=== PATIENT | female | born 1935 | race Caucasian/White ===

== ENCOUNTER 2022-03-16 12:59 | Emergency (ER) | payer MEDICARE, SELFPAY ==
--- NOTE | ~2022-03-16 | XR_ITS ---
XR forearm RT 2V DATE: 03/16/2022 13:32 INDICATION: Fall. Pain and bruising of entire right forearm, posterior hematoma. TECHNIQUE: 3 views COMPARISON: None FINDINGS: Prominent posterolateral soft tissue swelling/hematoma of the mid forearm. Slight dorsal olecranon process spurring. Normal alignment at the elbow and wrist joints. No fracture or dislocation of the radius or ulna is noted. No elbow joint effusion. 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 IMPRESSION: Prominent soft tissue hematoma along the posterolateral aspect of the forearm; no fractur e or dislocation is detected Reviewed, dictated and finalized at location B. IMPRESSION: Prominent soft tissue hematoma along the posterolateral aspect of t he forearm; no fracture or dislocation is detected
[2022-03-16 13:12] VITALS: BP 122/60; PULSE 64; RESP 16; TEMP 36.6; O2SAT 96
[2022-03-16 13:23] VITALS: BP 122/60
--- NOTE | 2022-03-16 14:13 | ED.UPPEXIN ---
HPI - Extremity Injury (Upper) General Chief Complaint: Extremity Injury, Upper Stated Complaint: Skin Sore Source: patient, family, RN notes reviewed and old records reviewed Mode of arrival: ambulatory Limitations: no limitations History of Present Illness HPI narrative: 86-year-old female who presents to [facility] with injury to her right forearm after falling on rocks at her home on Sunday and striking her right forearm. Patient has large hematoma to her mid anterior right forearm with bruising noted and small abrasion on top of hematoma with no drainage noted. Patient denies acute pain to her arm has full mobility. Patient denies any other injury, states did not hit her head and did not experience syncope or dizziness prior to fall. Patient takes daily 81 mg aspirin no other blood thinner. Patient has strong pulses to right arm and wrist. MD complaint: injury to: right and forearm Onset (ago): day(s) (4) Treatments prior to arrival: cold therapy Related Data Home Medications Medication Instructions Recorded Confirmed alprazolam 0.25 mg tablet mg 03/16/22 amlodipine 10 mg tablet mg 03/16/22 atorvastatin 40 mg tablet mg 03/16/22 bupropion HCl 150 mg 24 hr tablet, mg PO 03/16/22 extended release duloxetine 30 mg capsule,delayed mg PO 03/16/22 release levothyroxine 50 mcg tablet mcg 03/16/22 metoprolol succinate 25 mg mg PO 03/16/22 tablet,extended release 24 hr Allergies Allergy/AdvReac Type Severity Reaction Status Date / Time No Known Allergies Allergy Verified 03/16/22 13:22 Review of Systems Review of Systems: CONSTITUTIONAL: Denies fever, chills, or sweats. EYES: Denies visual changes, redness, or discharge. ENT: Denies rhinorrhea, congestion, sore throat, or otalgia. CARDIOVASCULAR: Denies chest pain, palpitations, or edema. RESPIRATORY: Denies cough or dyspnea. GASTROINTESTINAL: Denies abdominal pain, nausea, vomiting, or diarrhea. GENITOURINARY: Denies dysuria or hematuria. SKIN: Denies rash or itching. MUSCULOSKELETAL: Denies back pain,discomfort with bruising and hematoma to anterior right mid forearm from fall, or myalgia. NEUROLOGIC: Denies headache, numbness, or weakness. PSYCHIATRIC: Positive for anxiety or depression. All systems reviewed & are unremarkable except as noted in HPI and below PMFSH Past Medical History Medical History (Updated 03/17/22 @ 15:29 by Katharine Killian NP) Elevated cholesterol Hypertension Hypothyroid Post-menopausal Surgical History Surgical History (Updated 03/17/22 @ 15:31 by Katharine Killian NP) History of hand surgery surgical repair to fractures of left 3rd and 4th fingers Family History Family History (Updated 04/09/14 @ 07:13 by DOCTOR UNKNOWN) Mother Cerebrovascular accident Social History Social History (Updated 03/17/22 @ 15:32 by Katharine Killian NP) Smoking status: Never smoker Alcohol intake: never Substance use type: does not use Living arrangements: with family Gender identity (if verbalized by the patient): Female Comments At time of signature, agree with nursing past medical, surgical, social and family history. There is no relevant family history pertinent to the presenting complaint Exam Narrative: ctive GENERAL: Well-appearing, well-nourished, and in no acute distress. HEAD: Normocephalic, atraumatic. EYES: PERRLA and EOMI. ENT: Nares clear, no rhinorrhea or epistaxis. Mucous membranes moist.TM's normal with good light reflex, throat pink with no lesions or tonsil swelling NECK: Supple.no lymphadenopathy CHEST: Clear to auscultation. No respiratory distress.no cough SAO2 96% on room air HEART: Regular rate and rhythm. No murmur heard. Normal peripheral pulses. ABDOMEN: Soft, nontender, nondistended, normal active bowel sounds. EXTREMITIES: Normal range of motion. Hematoma to mid anterior aspect of right forearm with abrasion noted to hematoma with no active bleeding, arm is bruised indifferent
== END 2022-03-16 14:43 | disposition home or self-care (01) ==
PROVIDERS: Emergency Provider Registered Nurse
DX: S50.11XA Contusion of right forearm, initial encounter (principal); W19.XXXA Unspecified fall, initial encounter; E78.00 Pure hypercholesterolemia, unspecified; I10 Essential (primary) hypertension; E03.9 Hypothyroidism, unspecified; Z79.82 Long term (current) use of aspirin
CPT/HCPCS: 73090; 99203; G0463

== ENCOUNTER 2023-02-19 14:10 | Emergency (ER) | payer MEDICARE, SELFPAY ==
[2023-02-19 14:20] VITALS: BP 155/63; PULSE 73; RESP 20; TEMP 36.6; O2SAT 96
[2023-02-19 14:27] VITALS: BP 155/63; PULSE 73; RESP 20; TEMP 36.6; O2SAT 96
--- NOTE | 2023-02-19 14:35 | ED.LOWEXIN ---
HPI - Extremity Injury (Lower) General Chief Complaint: Extremity Injury, Lower Stated Complaint: Right Hip/Leg Pain History of Present Illness HPI Narrative: Patient presents with chronic right hip pain. Patient states she is scheduled for physical therapy but did not think she could go today due to the pain. Patient has taken Tylenol arthritis [id number] but nothing else for pain or discomfort. Two months ago patient was given a steroid injection and taper dose of prednisone and had some relief. Patient denies any bowel or bladder problems no new injury. Related Data Home Medications Medication Instructions Recorded Confirmed alprazolam 0.25 mg tablet mg 03/16/22 amlodipine 10 mg tablet mg 03/16/22 atorvastatin 40 mg tablet mg 03/16/22 bupropion HCl 150 mg 24 hr tablet, mg PO 03/16/22 extended release duloxetine 30 mg capsule,delayed mg PO 03/16/22 release levothyroxine 50 mcg tablet mcg 03/16/22 metoprolol succinate 25 mg mg PO 03/16/22 tablet,extended release 24 hr Allergies Allergy/AdvReac Type Severity Reaction Status Date / Time No Known Allergies Allergy Verified 03/16/22 13:22 Review of Systems Review of Systems: CONSTITUTIONAL: Denies fever, chills, or sweats. EYES: Denies visual changes, redness, or discharge. ENT: Denies rhinorrhea, congestion, sore throat, or otalgia. CARDIOVASCULAR: Denies chest pain, palpitations, or edema. RESPIRATORY: Denies cough or dyspnea. GASTROINTESTINAL: Denies abdominal pain, nausea, vomiting, or diarrhea. GENITOURINARY: Denies dysuria or hematuria. SKIN: Denies rash or itching. MUSCULOSKELETAL: Denies back pain, joint pain, or myalgia. NEUROLOGIC: Denies headache, numbness, or weakness. PSYCHIATRIC: Denies anxiety or depression. [facility] Past Medical History Medical History (Updated 02/19/23 @ 14:38 by VELMA Rodas) Elevated cholesterol Hypertension Hypothyroid Post-menopausal Surgical History Surgical History (Updated 03/17/22 @ 15:31 by Katharine Killian NP) History of hand surgery surgical repair to fractures of left 3rd and 4th fingers Family History Family History (Updated 04/09/14 @ 07:13 by DOCTOR UNKNOWN) Mother Cerebrovascular accident Social History Social History (Updated 03/17/22 @ 15:32 by MARLY Randolph Smoking status: Never smoker Alcohol intake: never Substance use type: does not use Living arrangements: with family Gender identity (if verbalized by the patient): Female Comments At time of signature, agree with nursing past medical, surgical, social and family history. There is no relevant family history pertinent to the presenting complaint Exam Narrative: GENERAL: Well-appearing, well-nourished, and in no acute distress. HEAD: Normocephalic, atraumatic. EYES: PERRLA and EOMI. ENT: Nares clear, no rhinorrhea or epistaxis. Mucous membranes moist. NECK: Supple. CHEST: Clear to auscultation. No respiratory distress. HEART: Regular rate and rhythm. No murmur heard. Normal peripheral pulses. ABDOMEN: Soft, nontender, nondistended, normal active bowel sounds. EXTREMITIES: Normal range of motion. No edema. Right lower hip pain pain worse with movement range of motion limited due to pain normal back exam SKIN: Warm, dry, no rash. NEURO: No focal deficits. Alert and oriented x3. [place] Coma Scale Eye Opening: Spontaneous 4 [place] Coma Scale Motor: Obeys Commands 6 [place] Coma Scale Verbal: Oriented 5 [place] Coma Scale Total 15 Course Course Level of Care: Express Care Visit Vital Signs Vital signs: Vital Signs Temperature 36.6 C 02/19/23 14:20 Pulse Rate 73 02/19/23 14:20 Respiratory Rate 02/19/23 14:20 Blood Pressure 155/63 H 02/19/23 14:20 Pulse Oximetry 96 02/19/23 14:20 Oxygen Delivery Room Air 02/19/23 14:20 Temperature 36.6 C 02/19/23 14:27 Pulse Rate 73 02/19/23 14:27 Respiratory Rate 02/19/23 14:27 Blood Pre
[2023-02-19] MEDS: KETOROLAC 30 MG/ML VIAL (*BKC) 15 MG IM (14:41)
== END 2023-02-19 15:01 | disposition home or self-care (01) ==
PROVIDERS: Emergency Provider Nurse Practitioner Family
DX: G89.29 Other chronic pain (principal); M25.551 Pain in right hip; E78.00 Pure hypercholesterolemia, unspecified; I10 Essential (primary) hypertension; E03.9 Hypothyroidism, unspecified
CPT/HCPCS: 96372; 99213; G0463; J1885

== ENCOUNTER 2024-12-25 15:08 | Outpatient (CLI) | payer OTHER, SELFPAY ==
--- OUTSIDE RECORDS SUMMARY | 2024-12-25 15:17 | XMS_ITS | Clinical Summary ---
Author Organization [facility] Address [facility] [place] [address] Care Team Providers Care Reworker Name Role Phone None, Provider MD Primary Care Provider Unavaila ble Allergies No known active allergies Medications traMADol (ULTRAM) 50 MG tabletIndication s:Acute Pain < 3 Day Supply Take 1 tablet (50 mg total) by mouth every 6 (six) hours as needed for Pain. Indications : Acute Pain < 3 Day Supply 10 tablet 08/10/2023 Active Social History Tobacco Use Types Packs/Day Years Used Date Smoking Tobacco: Never Assessed Comments Unknown Sex and Gender Information Value Date Recorded Sex Assigned at Not on file Legal Sex Female 8:15 PM CDT Gender Identity Not on file Sexual Orientation Not on file Last Filed Vital Signs Vital Sign Reading Time Taken Comments Blood Pressure 153/69 08/10/2023 10:13 PM [employer]ILY [employer]ESS[employer] Pulse 72 08/10/2023 9:10 PM [employer]ILY [employer]ER [employer] PROFESSOR Temperature 37 C (98.6 F) 08/10/2023 9:10 PM FAMILY [employer]ER SCI[employer] PROFESSOR Respiratory Rate 18 08/10/2023 10:13 PM FAMILY [employer]ER SCI[employer] PROFESSOR Oxygen Saturation 97% 08/10/2023 10:13 PM FAMILY [employer]SUMER SCI[employer] PROFESSOR Inhaled Oxygen Concentration - - Weight 74 kg (163 lb 2.3 oz) 08/10/2023 1:59 PM FAMILY [employer] CONSUMER SCIENCE PROFESSOR Height 152.4 cm (5') 08/10/2023 1:59 PM FAMILY [employer]SUMER SCI[employer] PROFESSOR Body Mass Index 31.86 08/10/2023 1:59 PM FAMILY AND [employer]SUMER SCIENCE PROFESSOR Plan of Treatment Health Maintenance Due Date Last Done Comments Zoster Vaccines (1 of 2) 1986 Annual Medicare Wellness Visit 2001 RSV Immunization or 60+ Years (1 - 1-dose 75+ series) 2011 COVID-19 Vaccine (2023-2 5 season) 2024 10/08/2020, 09/10/2020 DTaP, Tdap and Td Vaccines ( 2 - Td or Tdap) 12/23/2031 12/22/2021 Pneumococcal Vaccine: 50+ Years Completed 07/13/2015, 05/19/2013 Meningococcal B Vaccine Aged Out No l onger eligible based on patient's age to complete this topic Meningococcal Vaccine Aged Out No theodore trupti eligible based on patient's age to complete this topic RSV Immunizations Under 20 Months Aged Out No longer eligible b ased on patient's age to complete this topic Insurance [facility] MEDICARE Care Teams Reworker Relationship Specialty Start Date End Date None, Provider, MD PCP - General UNKNOWN PHYSICIAN SPECIALTY 08/10/23
--- OUTSIDE RECORDS SUMMARY | 2024-12-25 15:17 | XMS_ITS | Clinical Summary ---
Author Organization [facility] at the [facility] Office Center Address [address] [place] [address] Care Team Providers Care Public Address Servicer Name Role Phone Patti Garcia DO Primary Care Provider [phone] Sriram Hendrxi MD Unavailable [phone] Allergies No known active allergies Medications cholecalciferol (VITAMIN D-3) 1,000 unit tablet 1 tablet (1,000 Units total) daily Active aspirin 81 mg enteric coated tablet Take 1 tablet (81 mg total) by mouth daily Active acetaminophen (TYLENOL) 325 mg tabletIndications: Acute right-sided low back pain with right-sided sciatica Take 2 tablets (650 mg total) by mouth every 4 (four) hours as needed for pain 05/09/20 23 Active lidocaine (LIDODERM) 5 %Indications:Acute right-sided low back pain with right-sided sciatica Place 1 patch on the skin daily Remove & discard patch within 12 hours or as directed by . 05/09/20 23 Active traZODone (DESYREL) 50 mg tabletIndications: Acute right-sided low back pain with right-sided sciatica Take 1 tablet (50 mg total) by mouth nightly 30 tablet 05/09/20 23 Active atorvastatin (LIPITOR) 40 mg tabletIndications: Lipids abnormal Take 1 tablet (40 mg total) by mouth daily 30 tablet 05/09/20 23 Active buPROPion XL (WELLBUTRIN XL) 150 mg 24 hr tabletIndications: Major depressive disorder, recurrent episode, in partial remission with anxious distress Take 1 tablet (150 mg total) by mouth daily 30 tablet 05/09/20 23 Active HYDROcodone-acetam inophen (NORCO) 10-325 mg per tabletIndications: Pain Take 1 tablet by mouth nightly 30 tablet 05/09/20 23 Active HYDROcodone-acetam inophen (NORCO) 5-325 mg per tabletIndications: Pain Take 1 tablet by mouth every 4 (four) hours as needed for pain 60 tablet 05/09/20 23 Active Additional Information Patient taking differently:1 tablet oral Every 4 hours PRN, pain,Pt dose has been changed to 7.5/325, Indications: Pain, Reported on 09/11/2024 hydroxychloroquine (PLAQUENIL) 200 mg tabletIndications: Seropositive rheumatoid arthritis (HCC) Take 2 tablets (400 mg total) by mouth daily 60 tablet 05/09/20 Active Additional Information Patient taking differently: 200 mgoral Daily, Reported on 09/11/2024 levothyroxine (SYNTHROID) 50 mcg tabletIndications: Acquired hypothyroidism Take 1 tablet (50 mcg total) by mouth early morning babysitter before breakfast 30 tablet 05/09/20 23 Active Myrbetriq 25 mg tablet extended release 24 hr Take 1 tablet (25 mg total) by mouth daily 30 tablet 05/09/20 23 Active pregabalin (LYRICA) 75 mg capsuleIndications :Acute right-sided low back pain with right-sided sciatica Take 1 capsule (75 mg total) by mouth 2 (two) times a day 60 capsule 05/09/[address] (CYMBALTA) 60 mg capsule Take 1 capsule (60 mg total) by mouth daily 06/11/20 23 Active cyanocobalamin (Vitamin B-12) 1,000 mcg tabletIndications: Prevention of Vitamin B12 Deficiency Take 1 tablet (1,000 mcg total) by mouth daily Active DULoxetine DR (CYMBALTA) 30 mg capsule TAKE 1 CAPSULE BY MOUTH DAILY WITH 60 MG CAPSULE TO EQUAL TOTAL OF 90 MG DAILY. 08/17/19 24 Active vitamin E 400 unit capsule Take 1 capsule (400 Units total) by mouth Take 1 capsule by mouth daily. Active furosemide (LASIX) 20 mg tabletIndications: Edema Take 0.5 tablets (10 mg total) by mouth daily as needed (P.r.n. edema) Active atenoloL (TENORMIN) 50 mg tabletIndications: coronary artery disease,hypertensi on Take 1 tablet (50 mg total) by mouth daily Active amLODIPine (NORVASC) 5 mg tabletIndications: hypertension,preve ntion of anginal pain in coronary artery disease Take 1 tablet (5 mg total) by mouth daily 90 tablet 3 11/20/19 24 Active omeprazole (PriLOSEC) 40 mg capsule Take 1 capsule (40 mg total) by mouth daily 11/25/19 24 Active spironolactone (ALDACTONE) 25 mg tablet Take 1 tablet (25 mg total) by mouth daily 11/22/19 24 Active ALPRAZolam (XANAX) 0.25 mg tablet Take 1 tablet (0.25 mg total) by mouth 3 (three) times a day as needed for anxiety or sleep 03/28/20 24 Active famotidine (PEPCID) 20 mg tablet Take 1 tablet (20 mg total) by mouth 2 (two) times a day Active sucralfate (CARAFATE) suspension 1 gram/10 mL Take by mouth 4 (four) times a day Active ketorolac (TORADOL) 10 mg tablet Take 1 tablet (10 mg total) by mouth every 6 (six) hours as needed for pain 20 tablet 11/08/19 25 Active al & mag hydroxide with simethicone-diphen hydramine-lidocain e (MAGIC MOUTHWASH) suspension 1-1-1 Swish and swallow 10 mL every 4 (four) hours as needed (as needed) 350 mL 11/08/19 25 Active Active Problems Problem Noted Date Diagnosed Date Acute COVID-19 05/20/2024 Diastolic CHF, acute 05/20/2024 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 Assessment & Plan (05/02/2023 1:37 PM CDT): Hemoglobin with mild decline, went from 12.4-10.3. No active bleeding noted. We will continue to monitor, follow-up labs on 05/08 Falling 03/12/2023 Assessment & Plan (03/12/2023 9:54 AM CDT): See self care deficit Self-care deficit 03/12/2023 Assessment & Plan (03/12/2023 9:55 AM CDT): She is high risk for fall, injury, and harm. I have admitted to SNF. I have ordered norco for pain I have ordered lovenox for prophy I have consulted PT, OT, and ST for eval, advise, treat I have spoken w sister Roxann who augments her hx I have ordered cbc, cmp for today (also ua) Arthralgia 03/12/2023 Assessment & Plan (03/14/2023 9:13 PM CDT): With multiple affected joints from lower right back, right hip, right knee and right leg. Imaging was unrevealing except for osteoarthritis. Pain persists but is better controlled with increased frequency of available Morganza. Continue duloxetine, Lyrica. Unable to further titrate Lyrica due to renal dysfunction. Patient dislikes Lidoderm patch, will change to Lidoderm cream. MRI of the lumbar spine has been ordered, hoping to get done in a.m.. Assessment & Plan (03/12/2023 9:53 AM CDT): I have ordered xr lss, xr R hip, xr R knee She has MRI LSS scheduled by her pcp for mar 31, will see if this can be moved up Low back pain 03/12/2023 Assessment & Plan (05/09/2023 12:10 PM CDT): Patient found with significant spinal stenosis at multiple levels. Symptoms include significant lower extremity weakness, severe pain to back with radiation to right lower extremity, often has right knee buckling. has received multiple injections on 04/10/2023 and again on 04/30/2023 without much benefit in pain however significant improvement in lower extremity weakness. Patient has made improvements with therapy and was felt stable for discharge on 05/12/2023. We will arrange home health PT, OT, nursing services. Assessment & Plan (05/07/2023 2:44 PM CDT): Pt has made progress, despite continues pain. Right knee no longer buckling, making progress with her strength and endurance. Pt ready for DC planning, anticipating discharge 05/13 to home with family support. Continue pain controlled with norco, lyrica and methocarbemol. Assessment & Plan (05/02/2023 1:38 PM CDT): Secondary to spinal stenosis. No injury after fall early this a.m.. Continue current pain control with Tylenol, methocarbamol, Lyrica, scheduled and p.r.n. Morganza. Continue to participate in therapy to make improvements in strength and endurance. Patient is now alarmed, continue to encourage patient to request assistance when getting out of bed Assessment & Plan (05/01/2023 12:50 PM CDT): Patient with significant spinal stenosis at multiple levels, status post additional injection on 04/30/2023. Patient has not found it to be of benefit, continues to have significant pain which radiates down her right buttock into her right leg and knee. Has an additional follow-up in 2 weeks, encouraged patient to discuss other options/prognosis. Continue pain control with p.r.n. Tylenol, methocarbamol t.i.d., Lyrica 75 mg b.i.d., scheduled and p.r.n. Morganza Family is attempting to make her home more accessible. Assessment & Plan (04/25/2023 12:15 PM CDT): Anticipating additional inject 04/30. Will monitor progress after injection. Continue therapy for now, continue current pain regimen - scheduled and p.r.n. hydrocodone, Lyrica, methocarbamol, p.r.n. Tylenol. Assessment & Plan (04/23/2023 12:45 PM CDT): Per therapy she is had less right knee buckling but pain continues. Continue current pain regimen. Anticipate follow-up with Neurosurgery/pain management this week with anticipated discharge on 04/27/2023. Unclear discharge plan Assessment & Plan (04/16/2023 4:34 PM CDT): Patient reports that pain had improved for the 1st 24 hours after injections, now has continued to have burning sensation to bilateral lower extremities worse on the right. She does feel that the weakness and sudden giving out of her right knee has improved with therapy. Anticipate follow-up with neurosurgeon on 04/24/2023, patient is hopeful for continued improvement. Continue current pain regimen including p.r.n. and scheduled Morganza, scheduled methocarbamol, Lyrica, p.r.n. Tylenol. Feel that patient would benefit from increased Lyrica dosing however she is at max dose for her renal function. Assessment & Plan (04/11/2023 9:41 PM CDT): Status post multilevel injections on 04/10/2023. Patient denies any complications. Reports that she was able to sleep for the 1st time in months without pain. Has not yet attempted therapy, we will monitor for right knee buckling. Continue current pain control with p.r.n. Tylenol, p.r.n. and scheduled Morganza, methocarbamol and Lyrica. The hope would be to start reducing Morganza use Assessment & Plan (04/09/2023 7:46 PM CDT): Anticipating back injections tomorrow. Pain is about the same, still with r knee buckling. Continue current regimen of prn tylenol, prn and scheduled norco, methocarbamol and lyrica Assessment & Plan (04/04/2023 10:59 AM CDT): Likely secondary to spinal canal stenosis of multiple levels. No improvement in right knee giving out unexpectedly. Pain is reduced but present. Continue p.r.n. Tylenol, duloxetine, scheduled and p.r.n. Morganza, Lyrica, scheduled methocarbamol. Per patient, anticipating injections by Dr. Ezekiel Cartagena on 04/10/2023. Assessment & Plan (04/02/2023 2:08 PM CDT): Pain persist, and R knee with give out . Participating in therapy - but at this time would need wheelchair level for safety. Continue current pain control: Scheduled and p.r.n. Morganza, methocarbamol, Lyrica Assessment & Plan (03/30/2023 1:29 PM CDT): Patient is slowly making progress in therapy, anticipating injections by Neurosurgery in the future, unsure when this is scheduled. Pain is generally controlled with p.r.n. Tylenol, p.r.n. and scheduled Morganza, methocarbamol 1000 mg t.i.d. Assessment & Plan (03/27/2023 1:41 PM CDT): Likely related to spinal canal stenosis and other bony changes per MRI. Patient saw Neurosurgery last week, per family will be scheduled for injections. Patient continues to make progress in therapy despite complaints of pain. Pain is particularly worse at night. Already receiving Morganza 10/325 q.h.s., duloxetine, methocarbamol t.i.d.. Will increase trazodone dose Assessment & Plan (03/21/2023 6:08 PM CDT): Likely secondary to spinal canal stenosis. Patient continues to report restlessness at night , and routinely asks for her p.r.n. Morganza she has been making progress in therapy. Continue current regimen of Morganza 05/3251 tab q.h.s., Morganza 5/325 1 tab q.4 hours p.r.n., scheduled Lyrica. will add trazodone 25 mg q.h.s. and monitor for benefit. Patient has an initial neurosurgery evaluation, will need to take copy of recent MRI with her. Continue therapies Assessment & Plan (03/19/2023 1:52 PM CDT): Patient with significant multilevel spinal stenosis, chronic degenerative changes. MRI reviewed with sister over the phone. Patient's sister reports that she has a neurosurgery consult already scheduled on 03/23/2023 at 1:[address] Ezekiel Cartagena. Will ask licensed social worker to arrange transportation as sister is concerned about being able to get in and out of car. Pain seems to be better controlled with methocarbamol 1000 mg t.i.d., Morganza 5/325 q.4 hours p.r.n., Morganza 10/325 scheduled. Ask nursing staff to document in patient's room when last dose of Morganza given Assessment & Plan (03/16/2023 2:08 PM CDT): MRI LS reviewed - pt with chronic changes with degenerative disc disease and spondylosis. Patient also noted to have significant spondylolysis, multilevel spinal stenosis (see note for full report). Findings that could be contributing to pain. With pain being suboptimally controlled, will give higher dose of Morganza at bedtime 10 mg/325mg q.h.s., start methocarbamol 1000 mg t.i.d.. Patient likely will benefit from a neurosurgery consultation as an outpatient, PCP to arrange Benign hypertensive renal disease 08/30/2022 Major depressive disorder, r ecurrent episode, in partial remission with anxious distress 08/30/2022 Assessment & Plan (05/09/2023 12:08 PM CDT): Mood overall stable, continue Cymbalta, Wellbutrin Assessment & Plan (05/07/2023 2:46 PM CDT): Mood improved with knowledge of discharge planning. Continue wellbutrin, cymbalta and supportive care Assessment & Plan (05/01/2023 12:49 PM CDT): Patient becoming increasingly frustrated with lack of progress with pain control. Worried that she will not walk normally again. Continue Cymbalta, bupropion. Continue supportive care Assessment & Plan (04/23/2023 10:29 AM CDT): Mood stable, continue bupropion, cymbalta. Hopeful that follow up with surgeon will help with her pain control. Assessment & Plan (04/11/2023 9:43 PM CDT): Patient's mood is improving. Has not used alprazolam since admission, will discontinue. Continue bupropion, duloxetine Assessment & Plan (04/09/2023 7:54 PM CDT): Mood overall stable, encouraged pt to continue upbeat attitude. Continue Cymbalta and Wellbutrin. Pt still struggling with sleep, more so due to pain. Feels trazodone is helping. Assessment & Plan (04/04/2023 10:57 AM CDT): Mood continues to improve as she make progress. Continue duloxetine, Wellbutrin. Continue trazodone for sleep Assessment & Plan (03/30/2023 1:28 PM CDT): Mood is significantly improved as patient has improved functionally. Continue duloxetine, Wellbutrin, trazodone for sleep. Tolerating increased dose. Assessment & Plan (03/27/2023 1:42 PM CDT): Mood has improved as her physical functioning has improved. Continue Wellbutrin, duloxetine, p.r.n. alprazolam. Will increase trazodone to help with sleep. Assessment & Plan (03/21/2023 6:04 PM CDT): Patient's mood has improved over the course of her admission. Continue supportive care, duloxetine, Wellbutrin, p.r.n. alprazolam. Added trazodone q.h.s. which will hopefully help with sleep cycle Assessment & Plan (03/16/2023 2:15 PM CDT): Pt gets easily anxious, but mood stable for most part. Continue duloxetine, Wellbutrin, p.r.n. alprazolam Assessment & Plan (03/14/2023 9:14 PM CDT): Overall stable, continue duloxetine, Wellbutrin Assessment & Plan (03/12/2023 9:51 AM CDT): I ordered duloxetine Mild major depression, single episode 08/30/2022 Nocturia 08/30/2022 Assessment & Plan (05/01/2023 12:52 PM CDT): Tolerating Myrbetriq, symptoms better at night. Continue to monitor. Assessment & Plan (04/25/2023 12:16 PM CDT): No voiding complaints, continue myrbetriq Assessment & Plan (03/16/2023 2:17 PM CDT): UA performed, culture had clinically insignificant growth. Continue Myrbetriq for bladder spasm Obesity with body mass index 30 or greater 08/30 Seropositive rheumatoid arthritis 08/30/2022 Assessment & Plan (05/09/2023 12:08 PM CDT): Stable, continue hydroxychloroquine and p.r.n. pain management Assessment & Plan (03/12/2023 9:52 AM CDT): I ordered hydroxychloroquine Stage 3b chronic kidney disease 08/30/2022 Assessment & Plan (05/09/2023 12:07 PM CDT): Creatinine has remained overall stable during [place] [facility], often needs encouragement to increase p.o. fluid intake. Last creatinine 1.2 which is at baseline. Assessment & Plan (05/02/2023 1:36 PM CDT): Creatinine mildly increased to 1.3, encouraged p.o. fluid intake. We will follow-up on renal function and electrolytes on 05/08/2023 Assessment & Plan (04/23/2023 12:45 PM CDT): Renal function now stable, labs with creatinine 1.0, previous Cr 0.9. Assessment & Plan (04/16/2023 4:38 PM CDT): Renal function has remained stable, creatinine clearance 43, EGFR 55, previously 44. Continue to monitor. Follow-up labs in a.m. Assessment & Plan (04/09/2023 7:55 PM CDT): Cr improved/stable - currently 1.00. Continue to monitor, recheck labs 04/17 Assessment & Plan (04/02/2023 2:05 PM CDT): Cr stable today at 1.2. Continue to monitor weekly, avoid nephrotoxic agents. Assessment & Plan (03/27/2023 1:44 PM CDT): Creatinine overall stable at 1.2. Encouraged continue p.o. fluid intake. Follow- up labs on 04/02 Assessment & Plan (03/19/2023 1:54 PM CDT): Creatinine stable at 1.3, p.o. intake adequate. Follow-up labs 03/26/2023. Assessment & Plan (03/14/2023 9:13 PM CDT): Creatinine overall stable at 1.5. Continue to monitor, follow-up labs on 03/19/2023 Vitamin D deficiency 08/30/2022 Assessment & Plan (05/09/2023 12:07 PM CDT): Stable, continue supplementation Lipids abnormal 02/08/2022 Assessment & Plan (05/09/2023 12:07 PM CDT): Stable, continue atorvastatin Assessment & Plan (12/19/2022 3:08 PM CDT): Patient with abnormal lipids a on Lipitor tolerating well no side effects no muscle aches advised to continue Lipitor and low cholesterol diet Chronic renal impairment, stage 1 02/08/2022 Amputation, finger, traumatic 12/22/2021 Overview (12/22/2021): Added automatically from request for surgery [id number] Chronic renal insufficiency 03/14/2021 Assessment & Plan (12/19/2022 3:06 PM CDT): Patient has mild renal insufficiency and tolerating medications well will continue same and monitor the renal functions Shortness of breath 11/11/2020 Syncope and collapse 04/12/2016 Assessment & Plan (11/11/2018 2:31 PM CDT): Offers no new complaint denies dizziness syncope continue same medication Chest pain 04/12/2016 Assessment & Plan (11/11/2018 2:30 PM CDT): No chest pain advised to continue same medication Essential hypertension 04/12/2016 Assessment & Plan (05/09/2023 12:06 PM CDT): Stable, continue Norvasc, metoprolol Assessment & Plan (05/07/2023 2:45 PM CDT): BP stable, continue norvasc, metoprolol Assessment & Plan (05/01/2023 12:51 PM CDT): Blood pressure controlled, continue metoprolol, Norvasc Assessment & Plan (04/25/2023 12:17 PM CDT): Blood pressure remains well controlled, continue Norvasc, metoprolol Assessment & Plan (04/23/2023 10:11 AM CDT): BP well controlled, continue norvasc. Assessment & Plan (04/16/2023 4:36 PM CDT): Blood pressure overall stable, continue Norvasc. Patient has some transient elevation in systolic blood pressure, if these become more persistent would increase Norvasc to 10 mg daily Assessment & Plan (04/11/2023 9:44 PM CDT): Blood pressure well controlled, continue Norvasc 5 mg daily Assessment & Plan (04/04/2023 10:58 AM CDT): Blood pressure controlled, continue metoprolol, Norvasc Assessment & Plan (04/02/2023 2:04 PM CDT): BP stable, continue norvasc, metoprolol Assessment & Plan (03/30/2023 1:27 PM CDT): Blood pressure stable, continue metoprolol 12.5 mg daily, Norvasc 5 mg daily. Assessment & Plan (03/27/2023 1:43 PM CDT): Blood pressure has been lower recently, will reduce metoprolol to 12.5 mg daily, add hold parameters to Norvasc 5 mg daily to hold for systolic less than 110. Continue to monitor make adjustments if needed. Assessment & Plan (03/21/2023 6:06 PM CDT): Blood pressure well controlled, continue metoprolol 25 mg daily, Norvasc 5 mg daily Assessment & Plan (03/19/2023 1:54 PM CDT): Blood pressure well controlled, continue Norvasc 5 mg daily, metoprolol 25 mg daily Assessment & Plan (03/16/2023 2:16 PM CDT): Blood pressure stable, continue metoprolol 25 mg daily, Norvasc 5 mg daily Assessment & Plan (03/14/2023 9:11 PM CDT): Blood pressure generally well controlled, continue Norvasc, metoprolol Assessment & Plan (03/12/2023 9:51 AM CDT): I ordered norvasc, metoprolol Assessment & Plan (12/19/2022 3:07 PM CDT): Longstanding history of hypertension which is under control with amlodipine patient tolerating well no side effects advised to continue same medication and salt restricted diet Assessment & Plan (11/11/2018 2:32 PM CDT): Plans are Salt restriction Low-cholesterol diet Same medication Hypothyroidism 04/12/2016 Assessment & Plan (05/09/2023 12:07 PM CDT): Stable, continue Synthroid Assessment & Plan (03/12/2023 9:51 AM CDT): I ordered synthroid Assessment & Plan (12/19/2022 3:08 PM CDT): Patient with hypothyroidism patient taking thyroid supplement doing well continue same Colitis 04/12/2016 DJD (degenerative joint disease) 04/12/2016 Fibromyalgia 04/12/2016 Assessment & Plan (03/12/2023 9:53 AM CDT): I have ordered lyrica IBS (irritable bowel syndrome) 04/12/2016 Resolved Problems Problem Noted Date Diagnosed Date Resolved Date Benign hypertensive heart an d kidney disease with heart failure and chronic kidney disease stage V or end stage renal disease(404.13) 12/18/2023 12/18/2023 Pure hypercholesterolemia 04/12/2016 Assessment & Plan (11/11/2018 2:32 PM CDT): Low-cholesterol diet Watch batteries Same medication Encounters Date Type Department Care Team Description 11/12/2024 Telephone [facility] [address] [phone] Carlos Amaya MD 11/10/2024 12:30 PM CDT Lab [address] [id number] 11/10/2024 12:15 PM CDT - 11/10/2024 11:59 PM CDT Hospital Encounter [facility] [address] [place] [id number] Encounter for other preprocedural examination Discharge Disposition: Discharge to home or self care 11/07/2024 1:35 PM CDT - 11/07/2024 6:25 PM CDT Emergency [facility] [address] [place] [address] Castro Garcia MD Chronic abdominal pain (Primary Dx) Discharge Disposition: Discharge to home or self care 10/16/2024 2:20 PM DRUG AND ALCOHOL COUNSELLOR - 10/16/2024 11:59 PM DRUG AND ALCOHOL COUNSELLOR Hospital Encounter [facility] [address] [place] [address] Radiculopathy, lumbar region Discharge Disposition: Discharge to home or self care 10/16/2024 2:20 PM DRUG AND ALCOHOL COUNSELLOR Lab [address] [phone] from Last 3 Months Immunizations Immunization Administration Dates Next Due Tdap 12/22/2021 Surgical History Surgery Date Site/Laterality Comments APPENDECTOMY Appendectomy CARPAL TUNNEL RELEASE Carpal tunnel release HYSTERECTOMY Hysterectomy CARPAL TUNNEL RELEASE Bilateral OOPHORECTOMY Bilateral HYSTERECTOMY BACK SURGERY [facility]/t bleeding Medical History Medical History Date Comments Hypertension Hypertension Disorder of thyroid Thyroid dise ase Hyperlipidemia Hyperlipidemia Syncope Chest pain RA (rheumatoid arthritis) (HCC) Fibromyalgia Allergic rhinitis GERD (gastroesophageal reflux disease) Anxiety CHF (congestive heart failure) (HCC) Heart valve stenosis Family History Medical History Relation Name Comments Cancer Father Billy Cheema Colon cancer Father Billy Cheema Cancer, co theodore; Prostate cancer Father Billy Cheema Cancer, prostate; Throat cancer Father Billy Cheema Cancer, t hroat; Hypertension Mother Susanna Cheema Stroke Mother Susanna Cheema Stroke; Cau se of : Stroke Heart attack Mother's Brother Clayton Eisenberg Relation Name Status Comments Father Billy Cheema Mother Susanna Cheema (Age 88) Mother's Brother Clayton Eisenberg Social History Tobacco Use Types Packs/Day Years Used Date Smoking Tobacco: Never Smokeless Tobacco: Never Alcohol Use Standard Drinks/Week Comments Not Currently 0 (1 standard drink = 0.6 oz pur e alcohol) AUDIT-C Answer Date Recorded Q1: How often do you have a drink containing alcohol? Never 09/12/2024 Q2: How many drinks containi ng alcohol do you have on a typical day when you are drinking? Patient does not drink Q3: How often do you have si x or more drinks on one occasion? Never 09/12/2024 Personal Safety Answer Date Recorded Have you ever been in or are you currently in a harmful physical or emotional relationship or is someone making you feel afraid or unsafe? Denies 11/07/2024 Comments No Sex and Gender Information Value Date Recorded Sex Assigned at Not on file Legal Sex Female 1:40 AM DRUG AND ALCOHOL COUNSELLOR Gender Identity Female 03/19/2023 12:20 PM CDT Sexual Orientation Straight 03/19/2023 12 :20 PM CDT Obstetrics History Last Filed Vital Signs Vital Sign Reading Time Taken Comments Blood Pressure 180/82 11/07/2024 3:50 PM CDT Pulse 82 11/07/2024 3:55 PM CDT Temperature 36.9 C (98.4 F) 11/07/2024 11:03 AM CDT Respiratory Rate 16 11/07/2024 12:51 PM CDT Oxygen Saturation 98% 11/07/2024 3:55 PM CDT Inhaled Oxygen Concentration - - Weight 74.8 kg (165 lb) 09/12/2024 1:58 PM DRUG AND ALCOHOL COUNSELLOR Height 152.4 cm (5') 09/12/2024 1:58 PM DRUG AND ALCOHOL COUNSELLOR Body Mass Index 32.22 09/12/2024 1:58 PM DRUG AND ALCOHOL COUNSELLOR Plan of Treatment Health Maintenance Due Date Last Done Comments Depression Screening 1936 Hepatitis B Screening 1953 Well Visit 65+ 2001 Covid-19 Vaccine (3 - Modern a risk series) 11/05/2020 10/08/2020, 09/10/2020 Fall Risk Assessment 12/12/2024 12/13/2023 DTaP/Tdap/Td Vaccine (2 - Td or Tdap) 12/23/2031 12/22/2021 Osteoporosis Screening-Bone Density Scan Discontinued 12/01/2021, 10/07/2015, 03/07/2013 Pneumococcal vaccine 65+ Completed 2 024, 07/13/2015, 05/19/2013 Influenza Vaccine Completed 05/30/2024, , 06/20/2021, Additional history exists Zoster Vaccine Completed 10/29/2024, 05/30/2024 Medical Devices Implanted Type Area Door Operator Device Identifier Shelf Expiration Date Model / Serial / Lot Synthes Reinier 1.8mm 350mm [place] [employer] 292.38 - [id number] - [id number] Implanted:Qty: 1 on 12/23/2021 by Rosario Rea MD at [facility] Synthes I 12/11/2023 292.38 / [id number] / [employer] Angio-Seal Vip 6fr Closere Device [id number] - [id number] Implanted:Qty: 1 on 12/13/2023 by Mikhail Santos MD at [facility] [email or web address] [id number] 06/28/2024 [id number] / / [id number] Procedures Procedure Name Priority Date/Time Associated Diagnosis Comments ECG 12-LEAD Routine 11/10/2024 12:56 PM CDT Encounter for other preprocedural examination URINALYSIS, MICROSCOPIC ONLY Routine 11/10/2024 12:30 PM CDT EGFR Routine 11/10/2024 12:30 PM CDT DIFFERENTIAL AUTO Routine 11/10/2024 12:30 PM CDT ERYTHROCYTE SEDIMENTATION RATE Routine 11/10/2024 12:30 PM CDT CBC WITH AUTO DIFFERENTIAL Routine 11/10/2024 12:30 PM CDT COMPREHENSIVE METABOLIC PANEL Routine 11/10/2024 12:30 PM CDT CRP (ACUTE PHASE) Routine 11/10/2024 12:30 PM CDT URINALYSIS AND REFLEX TO MICROSCOPIC Routine 11/10/2024 12:[address] RECON LUMBAR SPINE WO CONTRAST ED 11/07/2024 4:[address] ABDOMEN PELVIS W CONTRAST ED 11/07/2024 2:50 PM CDT EGFR STAT 11/07/2024 11:26 AM CDT DIFFERENTIAL AUTO STAT 11/07/2024 11:26 AM CDT LIPASE STAT 11/07/2024 11:26 AM CDT COMPREHENSIVE METABOLIC PANEL STAT 11/07/2024 11:26 AM CDT CBC WITH AUTO DIFFERENTIAL STAT 11/07/2024 11:26 AM CDT MRI LUMBAR SPINE WO CONTRAST Schedule Routine, Read Routine (OP Routine) 10/16/2024 3:45 PM DRUG AND ALCOHOL COUNSELLOR Radiculopathy, lumbar region DIFFERENTIAL AUTO Routine 10/16/2024 2:2 4 PM DRUG AND ALCOHOL COUNSELLOR PROTIME-INR Routine 10/16/2024 2:24 PM DRUG AND ALCOHOL COUNSELLOR CBC WITH AUTO DIFFERENTIAL Routine 10/16/2024 2:24 PM DRUG AND ALCOHOL COUNSELLOR DEXA AXIAL SKELETON BONE DENSITY 1 OR MORE SITES Schedule Routine, Read Routine (OP Routine) 12/01/2021 2:08 PM CDT Other specified menopausal and perimenopausal disorders from Last 3 Months or Most Recently Relevant to Health Maintenance Results * ECG 12 lead (11/10/2024 12:56 PM CDT) 11/10/2024 12:5 9 PM CDT Narrative [facility] - 11/10/2024 1:30 PM CDT Vent Rate: 57 bpm RR Interval: 1035 msec SD Interval: 184 msec QRS Duration: 88 msec QT Interval: 435 msec QTC Interval: 430 msec P-R-T Pope: 52 - -15 - 23 degrees IMPRESSION: SINUS BRADYCARDIA LOW QRS VOLTAGE IN PRECORDIAL LEADS [QRS DEFLECTION < 1.0 mV IN CHEST LEADS] POSSIBLE ANTERIOR MYOCARDIAL INFARCTION , PROBABLY OLD [30 ms Q WAVE IN V3/V4, OR R < 0.2 mV IN V4] BORDERLINE ECG NO CHANGE FROM PREVIOUS TRACING NOTED Electronically Signed By: Alejo Soliz MD us Leslie MATHEWS ECG ORDERABLES Final Resu lt [facility] * (ABNORMAL) eGFR (11/10/2024 12:30 PM CDT) eGFR 18(L) >=60 mL/min/1. 73 m2 Comment: Interpretive Data Reference Interval Normal >/= 90 mL/min/1.73m2 Mildly decreased* 60 - 89 mL/min/1.73m2 Mildly to moderately decreased 45 - 59 mL/min/1.73m2 Moderately to severely decreased 30 - 44 mL/min/1.73m2 Severely decreased 15 - 29 mL/min/1.73m2 Kidney Failure < 15 mL/min/1.73m2 *Relative to young adult level Estimated glomerular filtration rate is determined by the 2020 CKD-EPI equation recommended by the National Kidney Foundation (A Unifying Approach to GFR Estimation: Recommendations of the NKF-ASK Task Force on Reassessing the Inclusion of Race in Diagnosing Kidney Disease, JASN 2020). The CKD-EPI equation should not be used for patients with unstable renal function and has not been validated in children and those over 70. Current interpretive data was last reviewed 2021. Specimen (Source) [id number]|2024-12-25 15:17:00|2024-12-25 15:17:00|XMS_ITS|BKG DAEMON|External Medical Summaries|[id number]|"g/dL [facility] Alk phos 69 40 - 130 Units/L [facility] ALT 11 7 - 45 Units/L [facility] AST 16 10 - 45 Units/L [facility] Blood 11/07/2024 11:2 6 AM CDT 11/07/2024 11:37 AM CDT us Michael Weinberg DO LAB BLOOD ORDERABLES Final Result [facility] Department [place] [address] * MRI Lumbar Spine WO Contrast (10/16/2024 3:45 PM DRUG AND ALCOHOL COUNSELLOR) Anatomical Region Laterality Modality Spine N/A Magnetic Resonan ce 10/17/2024 8:09 AM DRUG AND ALCOHOL COUNSELLOR Narrative 10/17/2024 8:18 AM DRUG AND ALCOHOL COUNSELLOR EXAM DESCRIPTION: MRI LUMBAR SPINE WO CONTRAST REASON FOR STUDY: Chronic low back pain. No provided history of radiculopathy. No provided history of trauma or inciting and/or aggravating events, though currently experiencing trouble walking pursuant to pain. History of hypertension, hyperlipidemia, unspecified type thyroid disease, rheumatoid arthritis, and fibromyalgia. No provided surgical history. TECHNIQUE: Sagittal and axial imaging of the lumbar spine includes T1, T2, STIR sequences. Images saved to PACS. COMPARISON: Relevant portions of CT chest without contrast 07/22/2024; CT lumbar spine without contrast 08/09/2023; MRI lumbar spine without contrast 03/15/2023; lumbar spine and right hip radiographs 03/12/2023. FINDINGS: SEGMENTATION: No lumbosacral transitional anatomy. The lowest fully formed intervertebral disc level is labeled L5-S1. ALIGNMENT: Alignment and curvature unchanged. VERTEBRAE: No MR evidence of acute-subacute fracture. Vertebral body heights unchanged. Spondylosis. Scattered hemangiomas and patchy fatty marrow replacement about the osseous architecture. DISC HEIGHT: Multilevel variable vacuum disc phenomenon, intervertebral disc desiccation, and loss of intervertebral disc height of the lower thoracic through lumbar spine. HARDWARE: None in the lumbar spine. CORD/CAUDA: Normal in size and signal intensity with conus medullaris termination at L1-2. LOWER THORACIC: Incompletely imaged. No stenosis demonstrated. INDIVIDUAL DISC LEVELS: L1-2: Posterior osteophytosis with annular disc bulge. Bilateral hypertrophic facet arthropathy. Ligamentum flavum thickening. Compromise of the bilateral lateral recesses, noting combination of disc and arthropathic facet slight contact with descending bilateral L2 nerve roots. With MPR analysis, moderate spinal canal stenosis. Mild bilateral inferior neural foraminal stenosis, noting slight disc contact with exiting bilateral L1 nerve roots. L2-3: Posterior osteophytosis with annular disc bulge with left subarticular-foraminal disc protrusion. Bilateral hypertrophic facet arthropathy. Ligamentum flavum thickening. Compromise of the hwwi-ibdzapg-[id number]-right lateral recesses, noting combination of disc and arthropathic facet variable contact with descending bilateral L3 nerve roots. Moderate spinal canal stenosis. Redemonstration of nrlpy-zhscwsz-tngt-left neural foraminal stenosis, noting combination of disc and arthropathic facet variable contact with exiting bilateral L2 nerve roots. L3-4: Posterior osteophytosis with annular disc bulge. Bilateral hypertrophic facet arthropathy. Ligamentum flavum thickening. Compromise of the bilateral lateral recesses, noting combination of disc and arthropathic facet variable with descending bilateral L4 nerve roots. MPR analysis of current imaging demonstrates moderate spinal canal stenosis. Redemonstration of bilateral neural foraminal stenosis, noting combination of osteophytosis/disc and arthropathic facet variable contact with exiting bilateral L3 nerve roots. L4-5: Slight uncovering of the intervertebral disc with annular disc bulge. Marked bilateral hypertrophic facet arthropathy. Ligamentum flavum thickening. Compromise of the bilateral lateral recesses, noting combination of disc and arthropathic facet variable slight contact with the descending bilateral L5 nerve roots. Moderate spinal canal stenosis. Redemonstration of variable bilateral neural foraminal stenosis, noting combination of inferior pedicular surface, posterior cortical margin/disc, and arthropathic facet variable contact with exiting bilateral L4 nerve roots. L5-S1: Posterior osteophytosis with annular disc bulge. Bilateral hypertrophic facet arthropathy. No spinal canal stenosis. Redemonstration of bilateral neural foraminal stenosis noting combination of inferior pedicular surface and osteophytosis/disc variable contact with exiting bilateral L5 nerve roots. SACRUM: Visualized upper sacrum intact. VISUALIZED UPPER ABDOMEN: Within limitations of patient motion artifact, partial incidental redemonstration of bilateral renal cystic lesions. Correlate with prior renal imaging. Otherwise, renal ultrasound can be performed for initial further evaluation. OTHER: Sarcopenia manifested as variably robust fatty atrophy of the visualized musculature. IMPRESSION: 1. Constellation of spondylolisthesis, spondylosis, and degenerative disc disease of the lumbar spine as detailed level by level above, 2. Partial incidental visualization of renal cystic lesions as above. THIS IS AN ELECTRONICALLY VERIFIED FINAL REPORT 10/17/2024 8:18 AM - Electronically signed by Keron Mejia M.D. NIMA: NIMA Report ID: [id number] Reading Location: [id number] Procedure Note Keron Mejia MD - 10/17/2024 EXAM DESCRIPTION: MRI LUMBAR SPINE WO CONTRAST REASON FOR STUDY: Chronic low back pain. No provided history of radiculopathy. No provided history of trauma or inciting and/oraggravating events, though currently experiencing trouble walking pursuant to pain. History of hypertension, hyperlipidemia, unspecified type thyroid disease, rheumatoid arthritis, and fibromyalgia. No provided surgical history. TECHNIQUE: Sagittal and axial imaging of the lumbar spine includes T1,T2, STIR sequences. Images saved to PACS. COMPARISON: Relevant portions of CT chest without contrast 07/22/2024;CT lumbar spine without contrast 08/09/2023; MRI lumbar spine withoutcontrast 03/15/2023; lumbar spine and right hip radiographs 03/12/2023. FINDINGS: SEGMENTATION: No lumbosacral transitional anatomy. The lowest fullyformed intervertebral disc level is labeled L5-S1. ALIGNMENT: Alignment and curvature unchanged. VERTEBRAE: No MR evidence of acute-subacute fracture. Vertebral body heights unchanged. Spondylosis. Scattered hemangiomas and patchy fatty marrow replacement about the osseous architecture. DISC HEIGHT: Multilevel variable vacuum disc phenomenon, intervertebraldisc desiccation, and loss of intervertebral disc height of the lower thoracic through lumbar spine. HARDWARE: None in the lumbar spine. CORD/CAUDA: Normal in size and signal intensity with conus medullaris termination at L1-2. LOWER THORACIC: Incompletely imaged. No stenosis demonstrated. INDIVIDUAL DISC LEVELS: L1-2: Posterior osteophytosis with annular disc bulge. Bilateral hypertrophic facet arthropathy. Ligamentum flavum thickening. Compromiseof the bilateral lateral recesses, noting combination of disc andarthropathic facet slight contact with descending bilateral L2 nerve roots. With MPR analysis, moderate spinal canal stenosis. Mild bilateral inferior neural foraminal stenosis, noting slight disc contact with exiting bilateral [id number] roots. L2-3: Posterior osteophytosis with annular disc bulge with left subarticular-foraminal disc protrusion. Bilateral hypertrophic facet arthropathy. Ligamentum flavum thickening. Compromise of the pdvg-vivmtgc-rgnd-right lateral recesses, noting combination of disc and arthropathic facet variable contact with descending bilateral L3 nerveroots. Moderate spinal canal stenosis. Redemonstration qkclung-cjtlikx-ghyu-left neural foraminal stenosis, noting combination of disc and arthropathicfacet variable contact with exiting bilateral L2 nerve roots. L3-4: Posterior osteophytosis with annular disc bulge. Bilateral hypertrophic facet arthropathy. Ligamentum flavum thickening. Compromiseof the bilateral lateral recesses, noting combination of disc andarthropathic facet variable with descending bilateral L4 nerve roots. MPR analysis of current imaging demonstrates moderate spinal canal stenosis.Redemonstration of bilateral neural foraminal stenosis, noting combination of osteophytosis/disc and arthropathic facet variable contact with exiting bilateral L3 nerve roots. L4-5: Slight uncovering of the intervertebral disc with annular discbulge. Marked bilateral hypertrophic facet arthropathy. Ligamentum flavum thickening. Compromise of the bilateral lateral recesses, notingcombination of disc and arthropathic facet variable slight contact with the descending bilateral L5 nerve roots. Moderate spinal canal stenosis.Redemonstration of variable bilateral neural foraminal stenosis, noting combination ofinferior pedicular surface, posterior cortical margin/disc, and arthropathic facet variable contact with exiting bilateral L4 nerve roots. L5-S1: Posterior osteophytosis with annular disc bulge. Bilateral hypertrophic facet arthropathy. No spinal canal stenosis.Redemonstration of bilateral neural foraminal stenosis noting combination of inferiorpedicular surface and osteophytosis/disc variable contact with exiting bilateral L5 nerve roots. SACRUM: Visualized upper sacrum intact. VISUALIZED UPPER ABDOMEN: Within limitations of patient motion artifact, partial incidental redemonstration of bilateral renal cystic lesions. Correlate with prior renal imaging. Otherwise, renal ultrasound can be performed for initial further evaluation. OTHER: Sarcopenia manifested as variably robust fatty atrophy of the visualized musculature. IMPRESSION: 1. Constellation of spondylolisthesis, spondylosis, and degenerativedisc disease of the lumbar spine as detailed level by level above, 2. Partial incidental visualization of renal cystic lesions as above. THIS IS AN ELECTRONICALLY VERIFIED FINAL REPORT 10/17/2024 8:18 AM - Electronically signed by Keron Mejia M.D. NIMA: NIMA Report ID: [id number] Reading Location: [id number] Leslie MATHEWS IM MRI PROCEDURES Final R esult * Differential, auto (10/16/2024 2:24 PM DRUG AND ALCOHOL COUNSELLOR) Neutrophil abs 4.2 1.5 - 6.5 K/cumm Imm gran abs 0.0 0.0 - 0.1 K/cumm [facility] Lymphocyte abs 1.1 0.8 - 3.3 K/cumm [facility] ([facility]) Monocyte abs 0.6 0.2 - 0.8 K/cumm [facility] ([facility]) Eosinophil abs 0.2 0.0 - 0.5 K/cumm [facility] ([facility]) Basophil abs 0.0 0.0 - 0.1 K/cumm [facility]) Neutrophil pct 67.2 % [facility] Comment: Interpretive Data Percent cell count reference ranges are not reported, since discordance with absolute values may lead to misinterpretation of CBC data. Current Interpretive Data was last revised on 2017. Imm gran pct 0.5 % [facility]) Comment: Interpretive Data Percent cell count reference ranges are not reported, since discordance with absolute values may lead to misinterpretation of CBC data. Current Interpretive Data was last revised on 2017. Lymphocyte pct 17.8 % [facility] Comment: Interpretive Data Percent cell count reference ranges are not reported, since discordance with absolute values may lead to misinterpretation of CBC data. Current Interpretive Data was last revised on 2017. Monocyte pct 10.4 % [facility]) Comment: Interpretive Data Percent cell count reference ranges are not reported, since discordance with absolute values may lead to misinterpretation of CBC data. Current Interpretive Data was last revised on 2017. Eosinophil pct 3.6 % [facility] Comment: Interpretive Data Percent cell count reference ranges are not reported, since discordance with absolute values may lead to misinterpretation of CBC data. Current Interpretive Data was last revised on 2017. Basophil pct 0.5 % [facility] Comment: Interpretive Data Percent cell count reference ranges are not reported, since discordance with absolute values may lead to misinterpretation of CBC data. Current Interpretive Data was last revised on 2017. Blood 10/16/2024 2:24 PM DRUG AND ALCOHOL COUNSELLOR 10/16/2024 2:30 PM DRUG AND ALCOHOL COUNSELLOR Leslie MATHEWS LAB BLOOD ORDERABLES Final Result [facility] [place] [address] * (ABNORMAL) CBC with auto differential (10/16/2024 2:24 PM DRUG AND ALCOHOL COUNSELLOR) WBC 6.2 3.8 - 9.9 K/cumm Hgb 11.2(L) 11.9 - 15.5 g/dL [facility] ([facility]) Hct 34.1(L) 35.6 - 45.5 % [facility]) Plt 185 150 - 400 K/cumm [facility]) MPV 10.3 9.1 - 12.3 fL [facility]) RBC 3.57(L) 3.90 - 5.20 M/cumm [facility] ([facility]) MCV 95.5 81.3 - 96.4 fL [facility] MCH 31.4 27.1 - 33.3 pg [facility]) MCHC 32.8 32.3 - 35.7 g/dL [facility]) RDW CV 13.0 11.1 - 14.9 % [facility]) RDW SD 45.5 35.7 - 48.1 fL [facility]) NRBC abs 0.00 0.00 - 0.01 K/cumm [facility]) Blood 10/16/2024 2:24 PM DRUG AND ALCOHOL COUNSELLOR 10/16/2024 2:30 PM DRUG AND ALCOHOL COUNSELLOR Leslie MATHEWS LAB BLOOD ORDERABLES Final Result [facility] [place] [address] * Protime-INR (10/16/2024 2:24 PM DRUG AND ALCOHOL COUNSELLOR) PT 11.0 9.7 - 13.0 sec [facility] INR 1.02 0.90 - 1.20 [facility] Comment: Interpretive data Oral anticoagulant therapeutic ranges: Venous thromboembolism prophylaxis or treatment: 2.0-3.0 CARDIOLOGY Standard range: 2.0-3.0 High-intensity range: 2.5-3.5 Refer to indication-specific guidelines for appropriate target ranges for prosthetic heart valve replacement. Current interpretive data was last revised on 2019. Blood 10/16/2024 2:24 PM DRUG AND ALCOHOL COUNSELLOR 10/16/2024 2:30 PM DRUG AND ALCOHOL COUNSELLOR us Leslie MATHEWS LAB BLOOD ORDERABLES Final Result [facility] Department [place] [address] * Dexa Axial Skeleton Bone Density 1 or 2 Site (12/01/2021 2:08 PM CDT) Anatomical Region Laterality Modality Body N/A Other 12/02/2021 6:49 AM CDT Narrative 12/02/2021 6:51 AM CDT EXAM DESCRIPTION: DEXA AXIAL SKELETON BONE DENSITY 1 OR MORE SITES REASON FOR STUDY: 86 y/o year old F with given history of screening. 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 FINDINGS: AP LUMBAR SPINE L1-L4: Total BMD is 1.312 g/cm2 T-score is 2.4 Dissimilar scan types or analysis methods precludes assessment for calculating a significant change. LEFT HIP: Total BMD is 1.060 g/cm2 T-score is 1.0 Dissimilar scan types or analysis methods precludes assessment for calculating a significant change. Femoral neck BMD is 0.743 g/cm2 T-score is -1.0 IMPRESSION: Based on the left femoral neck bone mineral density (T-score -1.0) the patient has normal bone mass. REFERENCE: Bone mineral density: Normal (T-score above or = -1.0) Low bone mass (T-score between -1.0 and -2.5) replaces the previously used term osteopenia Osteoporosis (T-score = or below -2.5) Medical evaluation for secondary causes of low bone mineral density may be appropriate. FRAX is a World Health Organization validated fracture risk assessment tool that calculates a person's 10 year probability of a major osteoporosis related fracture and hip fracture. According to the National Osteoporosis Foundation guidelines, postmenopausal women and men age 50 or older with low bone mass and a 10 year probability of a major osteoporosis related fracture = or greater than 20% or a 10 year probability of a hip fracture = or greater than 3% should be considered for treatment. For further information, including treatment recommendations, please refer to the 2013 ISCD Official Positions (http://www.iscd.org) and the NOF's Clinician's Guide to Prevention and Treatment of Osteoporosis (http://www.nof.org/professionals/clinical-guidelines) THIS IS AN ELECTRONICALLY VERIFIED FINAL REPORT 12/02/2021 6:51 AM - Electronically signed by Ezekiel Atkins M.D. MF: [email or web address] Report ID: [id number] Reading Location: [place] [id number] Procedure Note Ezekiel Atkins MD - 12/02/2021 EXAM DESCRIPTION: DEXA AXIAL SKELETON BONE DENSITY 1 OR MORE SITES REASON FOR STUDY: 86 y/o year old F with given history ofscreening. 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 FINDINGS: AP LUMBAR SPINE L1-L4: Total BMD is 1.312 g/cm2 T-score is 2.4 Dissimilar scan types or analysis methods precludes assessment for calculating a significant change. LEFT HIP: Total BMD is 1.060 g/cm2 T-score is 1.0 Dissimilar scan types or analysis methods precludes assessment for calculating a significant change. Femoral neck BMD is 0.743 g/cm2 T-score is -1.0 IMPRESSION: Based on the left femoral neck bone mineral density (T-score -1.0) the patient has normal bone mass. REFERENCE: Bone mineral density: Normal (T-score above or = -1.0) Low bone mass (T-score between -1.0 and -2.5) replaces thepreviously used term osteopenia Osteoporosis (T-score = or below -2.5) Medical evaluation for secondary causes of low bone mineral density may be appropriate. FRAX is a World Health Organization validated fracture risk assessmenttool that calculates a person's 10 year probability of a major osteoporosisrelated fracture and hip fracture. According to the National OsteoporosisFoundation guidelines, postmenopausal women and men age 50 or older with low bonemass and a 10 year probability of a major osteoporosis related fracture = or greater than 20% or a 10 year probability of a hip fracture = or greaterthan 3% should be considered for treatment. For further information, including treatment recommendations, please referto the 2013 ISCD Official Positions (http://www.iscd.org) and the NOF's Clinician's Guide to Prevention and Treatment of Osteoporosis (http://www.nof.org/professionals/clinical-guidelines) THIS IS AN ELECTRONICALLY VERIFIED FINAL REPORT 12/02/2021 6:51 AM - Electronically signed by Ezekiel Atkins M.D. MF: [id number] Report ID: [id number] Reading Location: [place] [address] Patti Garcia DO IMG DXA PROCEDURES Final R esult from Last 3 Months or Most Recently Relevant to Health Maintenance Insurance MEDICARE [facility] ADVANTAGE CHOICE PPO [facility] ADVANTAGE CHOICE PPO Advance Directives For more information, please contact: [phone] Documents on File Type Date Recorded Patient Webbing Weaver Expl anation ADVANCE DIRECTIVE 09/12/2024 2:53 PM Power of Mangle Catcher-Medical * Full Code (Latest Code Status on File) Date Activated Date Inactivated Comments 12/13/2023 5:50 PM 12/14/2023 12:12 AM Care Teams Public Address Servicer Relationship Specialty Start Date End Date Patti Garcia DO PCP - General 10/23/18 Sriram Hendrix MD [address] [place] [address] 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 Supervisor Cardiovascular Disease 05/27/19 Referral Summary Created on: December 25, 2024 Saskia Oconnor : 1935 Sex: Female Author Organization [facility] Address [address] [place] [address] Care Team Providers Care Public Address Servicer Name Role Phone Patti Garcia DO Primary Care Provider [phone] Sriram Hendrix MD Unavailable [phone] Encounters Date Type Department Care Team Description 11/12/2024 Telephone [facility] Cardiology [address] [address] Carlos Amaya MD 11/10/2024 12:30 PM CDT Lab [address] [address] 11/10/2024 12:15 PM CDT - 11/10/2024 11:59 PM CDT Hospital Encounter [facility] Card[facility] [address] [place] [address] Encounter for other preprocedural examination Discharge Disposition: Discharge to home or self care 11/07/2024 1:35 PM CDT - 11/07/2024 6:25 PM CDT Emergency [address] [address] Castro Garcia MD Chronic abdominal pain (Primary Dx) Discharge Disposition: Discharge to home or self care 10/16/2024 2:20 PM DRUG AND ALCOHOL COUNSELLOR Lab [facility] [address] [place] [address] 10/16/2024 2:20 PM DRUG AND ALCOHOL COUNSELLOR - 10/16/2024 11:59 PM DRUG AND ALCOHOL COUNSELLOR Hospital Encounter [facility] [address] [place] [address] Radiculopathy, lumbar region Discharge Disposition: Discharge to home or self care from Last 3 Months Allergies No known active allergies Medications cholecalciferol (VITAMIN D-3) 1,000 unit tablet 1 tablet (1,000 Units total) daily Active aspirin 81 mg enteric coated tablet Take 1 tablet (81 mg total) by mouth daily Active acetaminophen (TYLENOL) 325 mg tabletIndications: Acute right-sided low back pain with right-sided sciatica Take 2 tablets (650 mg total) by mouth every 4 (four) hours as needed for pain 05/09/20 23 Active lidocaine (LIDODERM) 5 %Indications:Acute right-sided low back pain with right-sided sciatica Place 1 patch on the skin daily Remove & discard patch within 12 hours or as directed by . 05/09/20 23 Active traZODone (DESYREL) 50 mg tabletIndications: Acute right-sided low back pain with right-sided sciatica Take 1 tablet (50 mg total) by mouth nightly 30 tablet 05/09/20 23 Active atorvastatin (LIPITOR) 40 mg tabletIndications: Lipids abnormal Take 1 tablet (40 mg total) by mouth daily 30 tablet 05/09/20 23 Active buPROPion XL (WELLBUTRIN XL) 150 mg 24 hr tabletIndications: Major depressive disorder, recurrent episode, in partial remission with anxious distress Take 1 tablet (150 mg total) by mouth daily 30 tablet 05/09/20 23 Active HYDROcodone-acetam inophen (NORCO) 10-325 mg per tabletIndications: Pain Take 1 tablet by mouth nightly 30 tablet 05/09/20 23 Active HYDROcodone-acetam inophen (NORCO) 5-325 mg per tabletIndications: Pain Take 1 tablet by mouth every 4 (four) hours as needed for pain 60 tablet 05/09/20 23 Active Additional Information Patient taking differently:1 tablet oral Every 4 hours PRN, pain,Pt dose has been changed to 7.5/325, Indications: Pain, Reported on 09/11/2024 hydroxychloroquine (PLAQUENIL) 200 mg tabletIndications: Seropositive rheumatoid arthritis (HCC) Take 2 tablets (400 mg total) by mouth daily 60 tablet 05/09/20 23 Active Additional Information Patient taking differently: 200 mgoral Daily, Reported on 09/11/2024 levothyroxine (SYNTHROID) 50 mcg tabletIndications: Acquired hypothyroidism Take 1 tablet (50 mcg total) by mouth early morning babysitter before breakfast 30 tablet 05/09/20 23 Active Myrbetriq 25 mg tablet extended release 24 hr Take 1 tablet (25 mg total) by mouth daily 30 tablet 05/09/20 23 Active pregabalin (LYRICA) 75 mg capsuleIndications :Acute right-sided low back pain with right-sided sciatica Take 1 capsule (75 mg total) by mouth 2 (two) times a day 60 capsule 05/09/[address] (CYMBALTA) 60 mg capsule Take 1 capsule (60 mg total) by mouth daily 06/11/20 23 Active cyanocobalamin (Vitamin B-12) 1,000 mcg tabletIndications: Prevention of Vitamin B12 Deficiency Take 1 tablet (1,000 mcg total) by mouth daily Active DULoxetine DR (CYMBALTA) 30 mg capsule TAKE 1 CAPSULE BY MOUTH DAILY WITH 60 MG CAPSULE TO EQUAL TOTAL OF 90 MG DAILY. 08/17/19 24 Active vitamin E 400 unit capsule Take 1 capsule (400 Units total) by mouth Take 1 capsule by mouth daily. Active furosemide (LASIX) 20 mg tabletIndications: Edema Take 0.5 tablets (10 mg total) by mouth daily as needed (P.r.n. edema) Active atenoloL (TENORMIN) 50 mg tabletIndications: coronary artery disease,hypertensi on Take 1 tablet (50 mg total) by mouth daily Active amLODIPine (NORVASC) 5 mg tabletIndications: hypertension,preve ntion of anginal pain in coronary artery disease Take 1 tablet (5 mg total) by mouth daily 90 tablet 3 11/20/19 24 Active omeprazole (PriLOSEC) 40 mg capsule Take 1 capsule (40 mg total) by mouth daily 11/25/19 24 Active spironolactone (ALDACTONE) 25 mg tablet Take 1 tablet (25 mg total) by mouth daily 11/22/19 24 Active ALPRAZolam (XANAX) 0.25 mg tablet Take 1 tablet (0.25 mg total) by mouth 3 (three) times a day as needed for anxiety or sleep 03/28/20 24 Active famotidine (PEPCID) 20 mg tablet Take 1 tablet (20 mg total) by mouth 2 (two) times a day Active sucralfate (CARAFATE) suspension 1 gram/10 mL Take by mouth 4 (four) times a day Active ketorolac (TORADOL) 10 mg tablet Take 1 tablet (10 mg total) by mouth every 6 (six) hours as needed for pain 20 tablet 11/08/19 25 Active al & mag hydroxide with simethicone-diphen hydramine-lidocain e (MAGIC MOUTHWASH) suspension 1-1-1 Swish and swallow 10 mL every 4 (four) hours as needed (as needed) 350 mL 11/08/19 25 Active Active Problems Problem Noted Date Diagnosed Date Acute COVID-19 05/20/2024 Diastolic CHF, acute 05/20/2024 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 Assessment & Plan (05/02/2023 1:37 PM CDT): Hemoglobin with mild decline, went from 12.4-10.3. No active bleeding noted. We will continue to monitor, follow-up labs on 05/08 Falling 03/12/2023 Assessment & Plan (03/12/2023 9:54 AM CDT): See self care deficit Self-care deficit 03/12/2023 Assessment & Plan (03/12/2023 9:55 AM CDT): She is high risk for fall, injury, and harm. I have admitted to SNF. I have ordered norco for pain I have ordered lovenox for prophy I have consulted PT, OT, and ST for eval, advise, treat I have spoken w sister Roxann who augments her hx I have ordered cbc, cmp for today (also ua) Arthralgia 03/12/2023 Assessment & Plan (03/14/2023 9:13 PM CDT): With multiple affected joints from lower right back, right hip, right knee and right leg. Imaging was unrevealing except for osteoarthritis. Pain persists but is better controlled with increased frequency of available Morganza. Continue duloxetine, Lyrica. Unable to further titrate Lyrica due to renal dysfunction. Patient dislikes Lidoderm patch, will change to Lidoderm cream. MRI of the lumbar spine has been ordered, hoping to get done in a.m.. Assessment & Plan (03/12/2023 9:53 AM CDT): I have ordered xr lss, xr R hip, xr R knee She has MRI LSS scheduled by her pcp for mar 31, will see if this can be moved up Low back pain 03/12/2023 Assessment & Plan (05/09/2023 12:10 PM CDT): Patient found with significant spinal stenosis at multiple levels. Symptoms include significant lower extremity weakness, severe pain to back with radiation to right lower extremity, often has right knee buckling. has received multiple injections on 04/10/2023 and again on 04/30/2023 without much benefit in pain however significant improvement in lower extremity weakness. Patient has made improvements with therapy and was felt stable for discharge on 05/12/2023. We will arrange home health PT, OT, nursing services. Assessment & Plan (05/07/2023 2:44 PM CDT): Pt has made progress, despite continues pain. Right knee no longer buckling, making progress with her strength and endurance. Pt ready for DC planning, anticipating discharge 05/13 to home with family support. Continue pain controlled with norco, lyrica and methocarbemol. Assessment & Plan (05/02/2023 1:38 PM CDT): Secondary to spinal stenosis. No injury after fall early this a.m.. Continue current pain control with Tylenol, methocarbamol, Lyrica, scheduled and p.r.n. Morganza. Continue to participate in therapy to make improvements in strength and endurance. Patient is now alarmed, continue to encourage patient to request assistance when getting out of bed Assessment & Plan (05/01/2023 12:50 PM CDT): Patient with significant spinal stenosis at multiple levels, status post additional injection on 04/30/2023. Patient has not found it to be of benefit, continues to have significant pain which radiates down her right buttock into her right leg and knee. Has an additional follow-up in 2 weeks, encouraged patient to discuss other options/prognosis. Continue pain control with p.r.n. Tylenol, methocarbamol t.i.d., Lyrica 75 mg b.i.d., scheduled and p.r.n. Morganza Family is attempting to make her home more accessible. Assessment & Plan (04/25/2023 12:15 PM CDT): Anticipating additional inject 04/30. Will monitor progress after injection. Continue therapy for now, continue current pain regimen - scheduled and p.r.n. hydrocodone, Lyrica, methocarbamol, p.r.n. Tylenol. Assessment & Plan (04/23/2023 12:45 PM CDT): Per therapy she is had less right knee buckling but pain continues. Continue current pain regimen. Anticipate follow-up with Neurosurgery/pain management this week with anticipated discharge on 04/27/2023. Unclear discharge plan Assessment & Plan (04/16/2023 4:34 PM CDT): Patient reports that pain had improved for the 1st 24 hours after injections, now has continued to have burning sensation to bilateral lower extremities worse on the right. She does feel that the weakness and sudden giving out of her right knee has improved with therapy. Anticipate follow-up with neurosurgeon on 04/24/2023, patient is hopeful for continued improvement. Continue current pain regimen including p.r.n. and scheduled Morganza, scheduled methocarbamol, Lyrica, p.r.n. Tylenol. Feel that patient would benefit from increased Lyrica dosing however she is at max dose for her renal function. Assessment & Plan (04/11/2023 9:41 PM CDT): Status post multilevel injections on 04/10/2023. Patient denies any complications. Reports that she was able to sleep for the 1st time in months without pain. Has not yet attempted therapy, we will monitor for right knee buckling. Continue current pain control with p.r.n. Tylenol, p.r.n. and scheduled Morganza, methocarbamol and Lyrica. The hope would be to start reducing Morganza use Assessment & Plan (04/09/2023 7:46 PM CDT): Anticipating back injections tomorrow. Pain is about the same, still with r knee buckling. Continue current regimen of prn tylenol, prn and scheduled norco, methocarbamol and lyrica Assessment & Plan (04/04/2023 10:59 AM CDT): Likely secondary to spinal canal stenosis of multiple levels. No improvement in right knee giving out unexpectedly. Pain is reduced but present. Continue p.r.n. Tylenol, duloxetine, scheduled and p.r.n. Morganza, Lyrica, scheduled methocarbamol. Per patient, anticipating injections by Dr. Ezekiel Cartagena on 04/10/2023. Assessment & Plan (04/02/2023 2:08 PM CDT): Pain persist, and R knee with give out . Participating in therapy - but at this time would need wheelchair level for safety. Continue current pain control: Scheduled and p.r.n. Morganza, methocarbamol, Lyrica Assessment & Plan (03/30/2023 1:29 PM CDT): Patient is slowly making progress in therapy, anticipating injections by Neurosurgery in the future, unsure when this is scheduled. Pain is generally controlled with p.r.n. Tylenol, p.r.n. and scheduled Morganza, methocarbamol 1000 mg t.i.d. Assessment & Plan (03/27/2023 1:41 PM CDT): Likely related to spinal canal stenosis and other bony changes per MRI. Patient saw Neurosurgery last week, per family will be scheduled for injections. Patient continues to make progress in therapy despite complaints of pain. Pain is particularly worse at night. Already receiving Morganza 10/325 q.h.s., duloxetine, methocarbamol t.i.d.. Will increase trazodone dose Assessment & Plan (03/21/2023 6:08 PM CDT): Likely secondary to spinal canal stenosis. Patient continues to report restlessness at night , and routinely asks for her p.r.n. Morganza she has been making progress in therapy. Continue current regimen of Morganza 05/3251 tab q.h.s., Morganza 5/325 1 tab q.4 hours p.r.n., scheduled Lyrica. will add trazodone 25 mg q.h.s. and monitor for benefit. Patient has an initial neurosurgery evaluation, will need to take copy of recent MRI with her. Continue therapies Assessment & Plan (03/19/2023 1:52 PM CDT): Patient with significant multilevel spinal stenosis, chronic degenerative changes. MRI reviewed with sister over the phone. Patient's sister reports that she has a neurosurgery consult already scheduled on 03/23/2023 at 1:[address] Ezekiel Cartagena. Will ask licensed social worker to arrange transportation as sister is concerned about being able to get in and out of car. Pain seems to be better controlled with methocarbamol 1000 mg t.i.d., Morganza 5/325 q.4 hours p.r.n., Morganza 10/325 scheduled. Ask nursing staff to document in patient's room when last dose of Morganza given Assessment & Plan (03/16/2023 2:08 PM CDT): MRI LS reviewed - pt with chronic changes with degenerative disc disease and spondylosis. Patient also noted to have significant spondylolysis, multilevel spinal stenosis (see note for full report). Findings that could be contributing to pain. With pain being suboptimally controlled, will give higher dose of Morganza at bedtime 10 mg/325mg q.h.s., start methocarbamol 1000 mg t.i.d.. Patient likely will benefit from a neurosurgery consultation as an outpatient, PCP to arrange Benign hypertensive renal disease 08/30/2022
--- OUTSIDE RECORDS SUMMARY | 2024-12-25 15:18 | XMS_ITS | Encounter Summary ---
Author Organization [facility] Care Team Providers Care Alteration Manager Name Role Phone Patti Garcia DO Primary Care Provider [phone] Sriram Hendrix MD Unavailable [phone] Encounter Details Date Type Department Care Team (Latest Contact Info) Description 07/10/2008 Orders Only [facility] CLINCONV ProviderVerónica MD [address] [place] [address] Social History Tobacco Use Types Packs/Day Years Used Date Smoking Tobacco: Never Assessed Comments Unknown Sex and Gender Information Value Date Recorded Sex Assigned at Not on file Legal Sex 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 Historical Provider [facility]END[facility] Final Result * CARDIOLOGY REPORT (10/25/2016 12:00 AM CDT) Anatomical Region Laterality Modality Other Narrative 10/25/2016 12:00 AM CDT Ordered by an unspecified provider. us Historical Provider [facility] AN[facility] MENDES Final Result documented in this encounter Visit Diagnoses Not on filedocumented in this encounter Care Teams Alteration Manager Relationship Specialty Start Date End Date Patti Garcia DO PCP - General 10/23/18 Sriram Hendrix MD [address] [place] [address] [address] [employer] Physical Education Teacher Cardiovascular Disease 05/27/19 documented as of this encounter
--- OUTSIDE RECORDS SUMMARY | 2024-12-25 15:18 | XMS_ITS | Encounter Summary ---
Author Organization [facility] Care Team Providers Care Line Crewman Name Role Phone Patti Garcia DO Primary Care Provider [phone] Sriram Hendrix MD Unavailable [phone] Encounter Details Date Type Department Care Team (Latest Contact Info) Description 02/24/2013 Orders Only [facility] CLINCONV ProviderVerónica MD [address] [place] [address] Social History Tobacco Use Types Packs/Day Years Used Date Smoking Tobacco: Never Assessed Alcohol Use Standard Drinks/Week Comments No 0 (1 standard drink = 0.6 oz pur e alcohol) Comments Unknown Sex and Gender Information Value Date Recorded Sex Assigned at Not on file Legal Sex 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 Historical Provider Final Res ult documented in this encounter Visit Diagnoses Not on filedocumented in this encounter Care Teams Line Crewman Relationship Specialty Start Date End Date Patti Garcia DO PCP - General 10/23/18 Sriram Hendrix MD [address] [facility] [place] [address] Marriage Counselor Minister Cardiovascular Disease 05/27/19 documented as of this encounter
--- OUTSIDE RECORDS SUMMARY | 2024-12-25 15:18 | XMS_ITS | Patient Health Record ---
Author Organization [facility] Address [address] [address] [place] [address] Support Name Relationship Address Phone Saskia Oconnor Guarantor Unknown Reason For Referral No Information Medications Medication SIG (Take, Route, Frequency, Duration) Notes Start Date End Date Status Amitriptyline HCl 25 MG TAKE 1 TABLET (2 5 MG) BY ORAL ROUTE ONCE DAILY AT BEDTIME FOR 30 DAYS Oral 12/22/2015 Active Metoprolol Succinate ER 25 MG Oral Active Co Q 10 100 MG Oral Activ e ALPRAZolam 0.25 MG Oral A ctive Rolanda-D Allergy & Congestion 180-240 MG take 1 tablet by oral route once daily on an empty stomach with a glass of water Oral 1 Active Levothyroxine Sodium 50 MCG Oral Active HYDROcodone-Acetaminophen 7.5-325 MG Oral Active Problems Problem Type SNOMED Code ICD Code Onset Dates Problem Status W/U Status Risk Notes Problem Fibromyalgia (512548129) Fibromyalgia (M79.7) Active confirmed Problem Essential (primary) hypertension (I10) Active confirmed Problem Pure hypercholesterolemia (938031172) Pure hypercholester olemia, unspecified (E78.00) Active confirmed Plan Of Treatment No Information Insurance Providers Payer Name Payer Address Payer Phone Subscriber Number Group Number Insured Name Patient Relationship to Insured Coverage Start Date Coverage End Date [facility] [address] [place] [address] [id number] Saskia Oconnor Self - patient is the insured [employer] [address] [place] [address] [id number] Saskia Oconnor Self - patient is the insured 5 [facility] [address] [place], [place] [id number] [phone] [id number] Saskia Oconnor Self - patient is the insured 5 Medical (General) History Surgical History Surgery Date(Month/Year) Carpal tunnel surgery; 2015-07-22 Hysterectomy; 2015-07-22 Appendectomy; 2015-07-22
--- OUTSIDE RECORDS SUMMARY | 2024-12-25 15:18 | XMS_ITS | Clinical Summary ---
Author Organization [facility] Address [address] [place] [address] Phone Care Team Providers Care Annealing Torch Operator Name Role Phone Unavailable Primary Care Provider Unavailabl e Allergies No known active allergies Medications sodium chloride (Kerrie 128) 5 % Solution Place 1 Drop in affected eye(s) daily. Active levothyroxine (SYNTHROID) 50 MCG Tablet Take 50 mcg by mouth daily. Active pregabalin (LYRICA) 75 MG Capsule Take 75 mg by mouth 2 times daily. Active aspirin EC 81 MG Tablet Delayed Response Take 81 mg by mouth daily. Active atenolol (TENORMIN) 25 MG Tablet Take 25 mg by mouth daily. Active DULoxetine (CYMBALTA) [address] Particles Take 60 mg by mouth daily. Active DULoxetine (CYMBALTA) [address] Particles Take 30 mg by mouth daily. Active Cyanocobalamin (Vitamin B 12) 500 MCG Tablet Take 1,000 mcg by mouth daily. Active amLODIPine (NORVASC) 5 MG Tablet Take 10 mg by mouth daily. Active docusate sodium (COLACE) 100 MG Capsule Take 100 mg by mouth daily. Active carbidopa-levod opa (SINEMET) 25-100 MG Tablet Take 1 Tablet by mouth 3 times daily. Active sucralfate (CARAFATE) 1 GM Tablet Take 1 g by mouth 3 times daily. Active omeprazole (PriLOSEC) 40 MG CAPSULE DELAYED RELEASE Take 40 mg by mouth 2 times daily. 4:00 pm and bedtime Active hydroxychloroqu ine (PLAQUENIL) 200 MG Tablet Take 200 mg by mouth Every Afternoon. 4:00 pm Active Vitamin D3 1000 UNIT Tablet Take 25 mcg by mouth Every Afternoon. 4:00 pm Active Vitamin E 450 MG (1000 UT) Capsule 450 mg Every Afternoon. 4:00 pm Active atorvastatin (LIPITOR) 40 MG Tablet Take 40 mg by mouth nightly. Active buPROPion, Smoking Deter, (ZYBAN) 150 MG TABLET SR 12 HR Take 150 mg by mouth nightly. Active traZODone (DESYREL) 50 MG Tablet Take 50 mg by mouth nightly. Active HYDROcodone-grabiel taminophen (NORCO) 10-325 MG Tablet Take 1 Tablet by mouth nightly. Take 1/2 to 1 full pill PRN but no more than 3 pills per day Active Mirabegron ER 50 MG TABLET SR 24 HR Take 50 mg by mouth nightly. Active furosemide (LASIX) 40 MG Tablet Take 40 mg by mouth nightly. Active famotidine (PEPCID) 20 MG Tablet Take 20 mg by mouth every evening. Active ALPRAZolam (Xanax) 0.25 MG Tablet Take 0.25 mg by mouth 2 times daily as needed. Active Acetaminophen (TYLENOL ARTHRITIS PAIN PO) Take 650 mg by mouth as needed. Active Encounters Date Type Department Care Team Description 12/19/2024 Travel from Last 3 Months Family History Medical History Relation Name Comments Cancer Father layrnex, bowels Hypertension Mother Relation Name Status Comments Father Mother Social History Tobacco Use Types Packs/Day Years Used Date Smoking Tobacco: Never Smokeless Tobacco: Never Tobacco Cessation:Counseling Given: Not Answered Alcohol Use Standard Drinks/Week Comments Never 0 (1 standard drink = 0.6 oz pur e alcohol) Comments Unknown Sex and Gender Information Value Date Recorded Sex Assigned at Not on file Legal Sex Female 12:06 AM CDT Gender Identity Not on file Sexual Orientation Not on file Last Filed Vital Signs Vital Sign Reading Time Taken Comments Blood Pressure - - Pulse - - Temperature - - Respiratory Rate - - Oxygen Saturation - - Inhaled Oxygen Concentration - - Weight 69.9 kg (154 lb) 12/19/2024 1:00 PM CDT Height 152.4 cm (5') 12/19/2024 1:00 PM CDT Body Mass Index 30.08 12/19/2024 1:00 PM CDT Plan of Treatment Upcoming Encounters Date Type Department Care Team (Late st Contact Info) Description 01/09/2025 11:40 AM CDT Hospital Encounter [facility] [address] [place] [address] Wilmar Morales MD [address] [place] [address] 01/09/2025 11:40 AM CDT - 01/09/2025 1:10 PM CDT Surgery [facility] [address] [place] [address] Wilmar Morales MD [address] , [place] [address] MINIMALLY INVASIVE LUMBAR DECOMPRESSION OF BILATERAL LUMBAR ONE-TWO, LUMBAR TWO-THREE, C-ARM, PLASMA BLADE, RAYMON CONF FOR 01/09@ 1200 DS 12/16 Scheduled Procedures Name Priority Associated Diagnoses Date/Ti me MINIMALLY INVASIVE LUMBAR DECOMPRESSION LUMBAR STENOSIS WITH NEUROGENIC CLAUDICATION, ENCOUNTER FOR EXAMINATION FOR NORMAL COMPARRISON AND CONTROL IN CLINICAL RESEARCH PROGRAM 01/09/2025 11:40 AM CDT Insurance MEDICARE C ESSENCE
--- OUTSIDE RECORDS SUMMARY | 2024-12-25 15:18 | XMS_ITS | Encounter Summary ---
Author Organization [facility] Care Team Providers Care Second Operator Name Role Phone Patti Garcia DO Primary Care Provider [phone] Sriram Hendrix MD Unavailable [phone] Encounter Details Date Type Department Care Team (Latest Contact Info) Description 04/29/2013 Orders Only [facility] ProviderVerónica MD [address] [place] [id number] Social History Tobacco Use Types Packs/Day Years Used Date Smoking Tobacco: Never Assessed Alcohol Use Standard Drinks/Week Comments No 0 (1 standard drink = 0.6 oz pur e alcohol) Comments Unknown Sex and Gender Information Value Date Recorded Sex Assigned at Not on file 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
--- OUTSIDE RECORDS SUMMARY | 2024-12-25 15:18 | XMS_ITS | Encounter Summary ---
Author Organization [facility] Address [address] [place] [address] Phone Care Team Providers Care Front Clerk Name Role Phone Patti Garcia DO Primary Care Provider [phone] Sriram Hendrix MD Unavailable [phone] Encounter Details Date Type Department Care Team (Late st Contact Info) Description 10/12/2022 Orders Only [facility] Surgery [address] [place] [address] Fiona Sharma, [address] [facility] [address] [place] [address] Social History Tobacco Use Types Packs/Day Years Used Date Smoking Tobacco: Never Smokeless Tobacco: Never Alcohol Use Standard Drinks/Week Comments Not Currently 0 (1 standard drink = 0.6 oz pur e alcohol) AUDIT-C Answer Date Recorded Q1: How often do you have a drink containing alc ohol? 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 [place] [address] Sales Support Coordinator Cardiovascular Disease 05/27/19 documented as of this encounter
[2024-12-25 16:41] LABS: Basophils Percent Auto 0.5 % (0.2-1.2); Eosinophils Absolute Auto 0.1 K/mm3 (0-0.3); Eosinophils Percent Auto 1.6 % (0-4.4); Hematocrit 36.6 % (37.0-47.0); Hemoglobin 11.3 g/dL (12.0-15.0); Immature Granulocyte Absolute 0.03 K/mm3 (0.00-0.031); Immature Granulocyte Percent A 0.5 % (0-0.5); Lymphocytes Absolute Auto 1.11 K/mm3 (0.9-3.2); Lymphocytes Percent Auto 17.3 % (18.3-44.2); Mean Corpuscular HGB Conc 30.9 g/dl (32-36); Mean Corpuscular Volume 100.5 fl (80-100); Mean Platelet Volume 10.6 fl (7.4-10.4); Monocytes Absolute Auto 0.6 K/mm3 (0.1-0.6); Monocytes Percent Auto 9.4 % (2.6-8.5); Neutrophils Absolute Auto 4.5 K/mm3 (1.3-6.7); Neutrophils Percent Auto 70.7 % (45.5-73.1); Platelet Count Result 204 k/mm3 (150-375); Red Blood Count 3.64 M/mm3 (4.2-5.4); Red Cell Distribution Width 13.9 % (11.5-14.5); White Blood Count 6.4 K/mm3 (4.5-10.0)
[2024-12-25 16:53] LABS: Alanine Aminotransferase 11 U/L (6-35); Albumin Level 4.3 g/dL (3.5-5.1); Alkaline Phosphatase 57 U/L (38-126); Anion Gap 10 mmol/L (4-12); Aspartate Amino Transferase 21 U/L (14-36); Bilirubin,Total 0.7 mg/dL (0.2-1.3); Blood Urea Nitrogen 48 mg/dL (7-17); CRP < 0.5 mg/dL (<1.0); Calcium 9.2 mg/dL (8.4-10.2); Carbon Dioxide 29 mmol/L (22-30); Chloride 104 mmol/L (98-107); Estimated Glomerular Filt Rate 19; Glucose 115 mg/dL (65-110); Potassium 4.1 mmol/L (3.4-5.0); Sodium 143 mmol/L (137-145)
[2024-12-25 18:01] LABS: Add Urine Microscopic? YES; Appearance Urine Cloudy (Clear); Bacteria Urine 3+ /hpf; Bilirubin Urine Negative (Negative); Blood Urine Negative (Negative); Color Urine Dark Yellow (Yellow); Glucose Urine UA Negative (Negative); Hyaline Casts Urine Present /lpf; Ketones Urine 1+ mg/dL (Negative); Leukocyte Esterase Ur 3+ LEU/UL (Negative); Mucus Urine Present /lpf; Need Manual Microscopic Reviewed; Nitrate Urine Negative (Negative); Non Pathogenic Casts >20; Protein Urine 1+ mg/dL (Negative); Specific Grav Ur 1.025 (1.001-1.035); Squamous Epithelial Cell Urine Moderate /hpf (Few); WBC Urine >100 /hpf (0-3)
[2024-12-25 18:13] LABS: Erythrocyte Sedimentation Rate 20 mm/hr (0-20)
== END 2024-12-25 15:09 | disposition home or self-care (01) ==
PROVIDERS: Visit Provider Physician Assistant
DX: Z01.818 Encounter for other preprocedural examination (principal)
CPT/HCPCS: 36415; 80053; 81001; 85025; 85652; 86140